=== PATIENT | male | born 1960 | race Caucasian/White ===

== ENCOUNTER 2019-11-13 07:07 | Day surgery (SDC) | payer OTHER ==
[~2019-11-13] VITALS: Ht 172.7 cm; Wt 75.5 kg
[~2019-11-13 07:07] MED LIST: Aciphex20 MG PO; SIMV10 PO; SPIHYD PO; VENL37.5 PO
[2019-11-13] MEDS ORDERED: HYDCHL25 PO (07:24)
--- NOTE | 2019-11-13 07:29 | NUR ---
Ambulatory in Day Surgery History, Chart, Medications and Allergies reviewed before start of procedure.Lungs clear T/O to Auscultation. Patient confirms NPO status and agrees with scheduled surgery. Patient states colon prep results clear. Patient States Post-Procedure ride home has been arranged.
--- NOTE | 2019-11-13 08:03 | NUR ---
11/13/19 0803 Deepali Hernandez History, Chart, Medications and Allergies reviewed before start of procedure. Patient confirms NPO status and agrees with scheduled surgery. 3-LEAD EKG REVIEWED WITH PHYSICIAN PRIOR TO START OF PROCEDURE. PATIENT DETERMINED TO BE ASA APPROPRIATE FOR PROPOFOL SEDATION PRIOR TO START OF PROCEDURE BY DR. ASHTON. MONITOR INTACT WITH CONTINUOUS PULSE OXIMETRY AND INTERMITTENT BP.
--- NOTE | 2019-11-13 09:02 | NUR ---
Discharge instructions reviewed with patient. Patient verbalizes understanding. Copy given to patient to take home. Patient up to Ambulate independently. Gait steady. Discharged via wheelchair to private car for ride home WITH SPOUSE
== END 2019-11-13 22:45 | disposition home or self-care (01) ==
LOC: ORSCMMR 07:07 → ORD 08:00 → ORSCMMR 08:00
PROVIDERS: Internal Medicine Gastroenterology
PROC: 0DBN8ZX Excision of Sigmoid Colon, Via Natural or Artificial Opening Endoscopic, Diagnostic (ICD-10-PCS; principal; 2019-11-13 08:00)
DX: Z85.038 Personal history of other malignant neoplasm of large intestine (principal); Z86.010 Personal history of colon polyps; K21.9 Gastro-esophageal reflux disease without esophagitis; E78.00 Pure hypercholesterolemia, unspecified; I10 Essential (primary) hypertension; D64.9 Anemia, unspecified; F32.9 Major depressive disorder, single episode, unspecified; Z87.891 Personal history of nicotine dependence; Z79.899 Other long term (current) drug therapy
CPT/HCPCS: 88305; J2704; J7120

== ENCOUNTER 2021-07-16 09:53 | Day surgery (SDC) | payer OTHER ==
[~2021-07-16 09:53] MED LIST changes: +ACET500 PO; +ATOR10 PO; +HYDCHL25 PO; +Lisinopril-Hct1 EAC4 PO; +MULVITA PO; +OMEP20ER PO; +OXYC5 PO; +PROBIOTIC PO; +SUPER B PO; +VITAMIN D310 MC4 PO; +[UNRECOGNIZED DRUG - OTHER] PO
--- NOTE | 2021-07-16 10:16 | NUR ---
Ambulatory in Day SurgeryLungs clear T/O to Auscultation. History, Chart, Medications and Allergies reviewed before start of procedure.Patient confirms NPO status and agrees with scheduled surgery.
--- NOTE | 2021-07-16 12:54 | NUR ---
07/16/21 1760 Esther Wu History, Chart, Medications and Allergies reviewed before start of procedure. Patient confirms NPO status and agrees with scheduled surgery. 3-LEAD EKG REVIEWED WITH PHYSICIAN PRIOR TO START OF PROCEDURE. MONITOR INTACT WITH CONTINUOUS PULSE OXIMETRY AND INTERMITTENT BP. PATIENT DETERMINED TO BE ASA APPROPRIATE FOR PROPOFOL SEDATION PRIOR TO START OF PROCEDURE BY . Bite Block Placed & REMOVED AT END OF CASE.
--- NOTE | 2021-07-16 13:25 | NUR ---
RECIEVED PATIENT AND REPORT FROM RN VSS
--- NOTE | 2021-07-16 13:54 | NUR ---
Discharge instructions reviewed with patient. Patient verbalizes understanding. Copy given to patient to take home. Patient States Post-Procedure ride home has been arranged. Discharged via wheelchair to private car for ride home.
== END 2021-07-16 23:06 | disposition home or self-care (01) ==
LOC: ORSCMMR 09:53 → ORD 11:00 → ORSCSDS 11:00 → ORSCMMR 11:00
PROVIDERS: Internal Medicine Gastroenterology
PROC: 0DB78ZX Excision of Stomach, Pylorus, Via Natural or Artificial Opening Endoscopic, Diagnostic (ICD-10-PCS; principal; 2021-07-16 11:00)
PROC: 0DB98ZX Excision of Duodenum, Via Natural or Artificial Opening Endoscopic, Diagnostic (ICD-10-PCS; principal; 2021-07-16 11:00)
PROC: 0DB58ZX Excision of Esophagus, Via Natural or Artificial Opening Endoscopic, Diagnostic (ICD-10-PCS; principal; 2021-07-16 11:00)
DX: R10.13 Epigastric pain (principal); K21.9 Gastro-esophageal reflux disease without esophagitis; I10 Essential (primary) hypertension; E78.00 Pure hypercholesterolemia, unspecified; F32.A Depression, unspecified; Z79.899 Other long term (current) drug therapy; Z87.891 Personal history of nicotine dependence
CPT/HCPCS: 88305; 88342; A9270; J2704; J7120